=== PATIENT | male | born 1990 | race Caucasian/White ===

== ENCOUNTER 2020-01-19 19:58 | Emergency (ER) | payer BC ==
[~2020-01-19] VITALS: Ht 188 cm; Wt 100.0 kg
[2020-01-19 20:04] VITALS: BP 132/79; TEMP 98
[2020-01-19] MEDS ORDERED: NORCO 325 MG-7.1 TAB PO (20:28)
[2020-01-19] MEDS ORDERED: AMOXICILLIN 50500 MG PO (20:28)
[2020-01-19 20:41] VITALS: PULSE 69
== END 2020-01-19 20:38 | disposition home or self-care (01) ==
LOC: COL.ER 19:58
DX: K02.9 Dental caries, unspecified (principal)